=== PATIENT | male | born 1980 | race Caucasian/White ===

== ENCOUNTER 2019-04-05 00:49 | Emergency (ER) | payer BC ==
[2019-04-05] MEDS ORDERED: PROPARACAINE HCL OPTH 15ML BTL OPTH ONE (00:54)
[2019-04-05] MEDS ORDERED: GENTAMICIN SULFATE 0.3% OPTH 5 ML BTL OPTH ONE (01:03)
[2019-04-05] MEDS ORDERED: HYDROCODONE/APAP 7.5/325MG TABLET PO ONE (01:08)
--- NOTE | 2019-04-05 01:08 | Emergency Department Record ---
History of Present Illness - General Chief complaint: Eye Problem Stated complaint: EYE INJURY Time Seen by Provider: 04/05/19 00:52 Source: Patient Mode of Arrival: Ambulatory Limitations: No limitations - History of Present Illness Initial comments: 38 yo male presents to ED for evaluation of right eye pain symptoms following injury to the right eye with a stick while [place]. Patient reports photophobia symptoms and mild blurred vision, denies other injury on examination. Patient denies health problems at his baseline, last tetanus was 3 years ago. MD chief complaint: Eye pain, Eye injury Onset/Timin -: Hour(s) Onset Description: Sudden Location: Right eye Place: Home If Injury: Direct trauma Eye Symptoms: Pain, Photophobia Severity: Moderate If Pain, Quality: Sharp, Stabbing Consistency: Constant Context: Injury Associated Symptoms: None Treatments Prior to Arrival: None - Related Data Previous Rx's Medication Instructions Recorded Gentamicin Sulfate 2 drop EACH EYE Q4H #5 ml 04/05/19 Hydrocodone/Acetaminophen [[place] 1 each PO Q6H PRN #10 tablet 04/05/19 5-325 Tablet] Allergies Allergy/AdvReac Type Severity Reaction Status Date / Time No Known Allergies Allergy Unverified 10/03/17 09:41 Review of Systems Constitutional: Denies: Chills, Fever, Malaise, Night sweats Eyes: Reports: Eye pain, Photophobia. Denies: Eye discharge ENT: Denies: Congestion, Ear pain, Epistaxis Respiratory: Denies: Cough, Dyspnea Cardiovascular: Denies: Chest pain, Dyspnea on exertion Endocrine: Denies: Fatigue, Heat or cold intolerance Gastrointestinal: Denies: Abdominal pain, Nausea, Vomiting Genitourinary: Denies: Incontinence, Retention Musculoskeletal: Denies: Arthralgia, Back pain Skin: Denies: Bruising, Change in color Neurological: Denies: Abnormal gait, Confusion, Headache, Seizure Psychiatric: Denies: Anxiety Hematological/Lymphatic: Denies: Anemia, Blood Clots Physical Exam - General General Appearance: Alert, Oriented x3, Cooperative, Mild distress Limitations: No limitations - Head Head exam: Atraumatic, Normocephalic, Normal inspection Head exam detail: negative: Abrasion, Contusion, Ricardo's sign, General tenderness, Hematoma, Laceration - Eye Eye exam: Other (Abrasion noted to the eye on Flourescein examination at the 9 o'clock position, negative Kerri's sign, no FB on lid eversion or staining.). negative: Conjunctival injection, Periorbital swelling, Periorbital tenderness, Scleral icterus Image of Eyes: 1 - Pupil/Iris 2 - Abrasion 3 - Abrasion - ENT Ear exam: negative: Auricular hematoma, Auricular trauma Nasal Exam: negative: Active bleeding, Discharge, Dried blood, Foreign body Mouth exam: negative: Drooling, Laceration, Muffled voice, Tongue elevation - Neck Neck exam: Normal inspection. negative: Meningismus, Tenderness - Respiratory Respiratory exam: Normal lung sounds bilaterally. negative: Rales, Respiratory distress, Rhonchi, Stridor - Cardiovascular Cardiovascular Exam: Regular rate, Normal rhythm, Normal heart sounds - GI/Abdominal GI/Abdominal exam: Soft. negative: Rebound, Rigid, Tenderness - Rectal Rectal exam: Deferred - exam: Deferred - Extremities Extremities exam: Normal inspection. negative: Pedal edema, Tenderness - Back Back exam: Denies: CVA tenderness (R), CVA tenderness (L) - Neurological Neurological exam: Alert, Normal gait, Oriented X3 - Psychiatric Psychiatric exam: Normal affect, Normal mood - Skin Skin exam: Normal color. negative: Abrasion Type of lesion: negative: abrasion Course Vital Signs 04/05/19 00:54 Temperature 97.9 F Pulse Rate [ 79 Pulse Ox Probe] Respiratory 20 Rate Blood Pressure 156/82 [Left Arm] Pulse Ox 97 - Reevaluation(s) Reevaluation #1: 04/05/19 01:15 Examination appears c/w corneal abrasion to the right eye at the nine o'clock position Will treat with Gentamicin eye drops and [place] as needed for pain, will refer to Dr. Mcqueen for further evaluation. Negative Kerri's sign on examination No FB identified on examination of the corneal/sclera, no FB on upper/lower lid eversion. Patient appears stable for discharge at this time. Disposition Disposition: Discharge Clinical Impression: Corneal abrasion Qualifiers: Encounter type: initial encounter Laterality: right Qualified Code(s): S05.01XA - Injury of conjunctiva and corneal abrasion without foreign body, right eye, initial encounter Disposition: Home, Self-Care Condition: (2) Stable Instructions: Corneal Abrasion (ED) Additional Instructions: Return to ED if your symptoms worsen or if you have any concerns. Gentamicin eye drops and [place] as directed. Follow-up with Dr. Mcqueen in 1-3 days as directed. Prescriptions: Gentamicin Sulfate 2 drop EACH EYE Q4H #5 ml Hydrocodone/Acetaminophen [[place] 5-325 Tablet] 1 each PO Q6H PRN #10 tablet PRN Reason: Pain - Moderate (5-7) Referrals: Cristhian Mcqueen [MEDICAL DOCTOR] - Forms: Patient Portal Access Time of Disposition: 01:05 Quality - Quality Measures Quality Measures: N/A - Blood Pressure Screening Does Patient Have Any of the Following: No Blood Pressure Classification: Pre-Hypertensive BP Reading Systolic Measurement: 156 Diastolic Measurement: 82 Screening for High Blood Pressure: < Pre-Hypertensive BP, F/U Documented > [[id number]] Pre-Hypertensive Follow-up Interventions: Referral to alternative/primary care provider.
== END 2019-04-05 01:29 | disposition home or self-care (01) ==
LOC: ER 00:49
DX: S05.01XA Injury of conjunctiva and corneal abrasion without foreign body, right eye, initial encounter (principal); H53.8 Other visual disturbances; H53.141 Visual discomfort, right eye; W22.8XXA Striking against or struck by other objects, initial encounter; Y92.009 Unspecified place in unspecified non-institutional (private) residence as the place of occurrence of the external cause
CPT/HCPCS: 99283